=== PATIENT | male | born 1950 | race Caucasian/White ===

== ENCOUNTER → 2016-03-20 | Day surgery (SDC) | payer MEDICARE, OTHER ==
[~2016-03-20] MED LIST: ADVAIR 250-501 EAC1 IH; ALBUTEROL17 GM INH; ALDACTONE PO; BAYER ASPIRIN325 M1 PO; CALCIUM 600 MG1 EAC1 PO; CHOLESTEROL MED; COLACE PO; COMBIVENT U/D3 M1 INH; COREG6.25 MG PO; COUMADIN PO; COUMADIN5 MG PO; DILTIAZEM 24HR180 M1 PO; FLEXERIL PO; FLORINEF ACETA0.1 MG PO; FLORINEF0.1 M1 PO; FLORINEF0.1 MG PO; K-DUR20 ME1 PO; KAYEXALATE453.6 GM PO; LASIX20 MG PO; LEVAQUIN750 MG PO; LORTAB 10-5001 EACH PO; LORTAB 5/500 TA1 TA1 PO; LOVENOX40 MG/0.4 INJ; MATZIM LA240 MG PO; NORVASC PO; OMEPRAZOLE10 M1 PO; OXYGEN; PREDNISONE PO; PRINIVIL5 MG PO; SIMVASTATIN20 MG PO; SOD BICARBONATE PO; SYMBICORT INH; VENTOLIN5 MG/ML INH; VICODIN 5/500 T1 TAB PO; ZESTRIL5 MG PO; ZITHROMAX PO; ZOCOR PO
--- NOTE | ~2016-03-20 | OR ---
Unit #: [id number] #: [id number] Patient: WANDA BRANCH [id number] [address] [address] [id number] O MR#: [id number] NAME: WANDA BRANCH ROOM: Date of Procedure: 03/20/2016 Admission Date: 03/20/2016 Surgeon: Lance Collins M.D. : 1950 Attending Physician: Lance Collins M.D. Primary Care Physician: Jill Guo M.D. OPERATIVE REPORT PRIMARY CARE PHYSICIAN Dr. Jill Guo. PREOPERATIVE DIAGNOSES Iron deficiency anemia, anemia of chronic gastrointestinal blood loss. PROCEDURES PERFORMED Upper gastrointestinal endoscopy and biopsy as well as colonoscopy with polypectomy. POSTOPERATIVE DIAGNOSES For upper endoscopy: 1. The patient had moderate prepyloric antral erosive gastritis. A biopsy was obtained from the antrum for CLOtest. 2. Distal grade 2 erosive esophagitis. 3. Rest of the examination up to third part of duodenum was normal. Biopsies were obtained from the deep descending duodenal folds to look for any evidence of partial villous atrophy or celiac disease. For colonoscopy: 1. The patient had 2 sessile polyps, one each in the transverse colon and sigmoid colon. These were a centimeter and 5 mm each. Both were removed using snare cautery polypectomy. 2. Rest of the examination up to cecum and terminal ileum was normal. The quality of the prep was excellent. RECOMMENDATIONS 1. The patient will resume Coumadin starting today. 2. He is being started on pantoprazole 40 mg p.o. daily. 3. He will be followed up in the office in 12 weeks' time. SEDATION USED MAC. DESCRIPTION OF PROCEDURE Following detailed explanation of the potential risks and complications of an upper endoscopy and a colonoscopy, namely perforation, bleeding, and complication related to sedation, the patient was brought to GI lab and laid in the left lateral decubitus position. Lubricated tip of the Olympus video upper endoscope was passed through the bite block into the proximal esophagus under direct vision. The entire esophageal mucosa was examined. The patient was noted to have grade 2 distal erosive esophagitis. The scope was then advanced into the gastric cavity and the Unit #: [id number] #: [id number] Patient: WANDA BRANCH was insufflated. Mucosa of the fundus, body, and antrum was examined. Moderate diffuse prepyloric antral erosive gastritis was noted. Pylorus was intubated with visualization of the normal duodenal bulb and second and third part of the duodenum. Upon withdrawal and retroflexion, incisura, cardia, and greater curve was examined and a biopsy was obtained from the antrum for CLOtest. In addition, biopsies were also obtained from the deep descending duodenal folds to look for any evidence of partial villous atrophy or celiac disease. The scope was then withdrawn in the distal esophagus. Entire esophageal mucosa was examined all the way up to pharynx, no additional findings were noted. The examination table was then turned by 180 degrees and the patient was positioned for a colonoscopy. A digital rectal examination was performed, which was normal. Lubricated tip of the Olympus video colonoscope was inserted through the anus and advanced under direct vision. The scope was advanced past rectosigmoid into descending colon. No diverticula were seen in this area. The scope tip was then navigated all the way up to cecum with visualization of the ileocecal valve and the appendiceal orifice. Preparation was excellent with good visualization and photodocumentation was obtained. Last few inches of the terminal ileum were also visualized after intubation of the ileocecal valve and appeared normal. Successive segments of the colonic mucosa were examined upon withdrawal. The patient was noted to have 2 sessile polyps, the first was a transverse colon sessile polyp about a centimeter in size. This was removed using snare cautery polypectomy. A second sessile polyp was noted in the distal sigmoid colon. This was also removed using snare polypectomy. It was about 5 mm in size. Both the polyps were removed, retrieved, and sent for histology. Excellent hemostasis was achieved and photodocumentation was obtained. No additional polyps were noted. The patient did not have any diverticulosis nor any hemorrhoids. The scope was then withdrawn and the patient returned to the recovery area. He tolerated the procedure without any postprocedure complications. Dictated by.Jamaica Alejandro TD: 03/20/2016 08:40 JOB #: [id number] CC: [place] Guo OPERATIVE REPORT X Lance Collins MD OPERATIVE NOTE
== END | disposition home or self-care (01) ==
LOC: COPS 05:56
DX: K29.60 Other gastritis without bleeding (principal); K20.8 Other esophagitis; D12.3 Benign neoplasm of transverse colon; D12.5 Benign neoplasm of sigmoid colon; D50.0 Iron deficiency anemia secondary to blood loss (chronic); J44.9 Chronic obstructive pulmonary disease, unspecified; F17.200 Nicotine dependence, unspecified, uncomplicated; I25.10 Atherosclerotic heart disease of native coronary artery without angina pectoris; Z95.1 Presence of aortocoronary bypass graft; D64.9 Anemia, unspecified; I10 Essential (primary) hypertension; Z79.01 Long term (current) use of anticoagulants
CPT/HCPCS: 87077; 88305; J0290; J1580; J2250; J2370

== ENCOUNTER → 2016-04-09 | Outpatient (CLI) | payer MEDICARE, OTHER ==
[2016-04-09 09:50] LABS: INR 3.5; PROTHROMBIN TIME (PATIENT) 38.4 SECONDS (9.6-11.5)
== END | disposition home or self-care (01) ==
LOC: CLAB 08:58
PROVIDERS: Internal Medicine Cardiovascular Disease
DX: Z51.81 Encounter for therapeutic drug level monitoring (principal); Z95.2 Presence of prosthetic heart valve; Z79.01 Long term (current) use of anticoagulants
CPT/HCPCS: 36415; 85610

== ENCOUNTER → 2016-04-16 | Outpatient (CLI) | payer MEDICARE, OTHER ==
[2016-04-16 09:52] LABS: INR 2.8; PROTHROMBIN TIME (PATIENT) 30.6 SECONDS (9.6-11.5)
== END | disposition home or self-care (01) ==
LOC: CLAB 08:59
PROVIDERS: Internal Medicine Cardiovascular Disease
DX: Z51.81 Encounter for therapeutic drug level monitoring (principal); Z95.2 Presence of prosthetic heart valve; Z79.01 Long term (current) use of anticoagulants
CPT/HCPCS: 36415; 85610

== ENCOUNTER → 2016-04-18 | Outpatient (CLI) | payer MEDICARE, OTHER ==
[2016-04-18 10:28] LABS: INR 3.1; PROTHROMBIN TIME (PATIENT) 34.3 SECONDS (9.6-11.5)
== END | disposition home or self-care (01) ==
LOC: CLAB 09:43
PROVIDERS: Internal Medicine Cardiovascular Disease
DX: Z51.81 Encounter for therapeutic drug level monitoring (principal); Z79.01 Long term (current) use of anticoagulants; Z95.2 Presence of prosthetic heart valve
CPT/HCPCS: 36415; 85610

== ENCOUNTER → 2016-04-29 | Outpatient (CLI) | payer MEDICARE, OTHER ==
[2016-04-29 11:45] LABS: INR 5.5
== END | disposition home or self-care (01) ==
LOC: CLAB 10:40
PROVIDERS: Internal Medicine Cardiovascular Disease
DX: Z51.81 Encounter for therapeutic drug level monitoring (principal); Z95.2 Presence of prosthetic heart valve; Z79.01 Long term (current) use of anticoagulants
CPT/HCPCS: 36415; 85610

== ENCOUNTER → 2016-05-01 | Outpatient (CLI) | payer MEDICARE, OTHER ==
[2016-05-01 10:08] LABS: INR 1.6
[2016-05-01 10:09] LABS: PROTHROMBIN TIME (PATIENT) 17.4 SECONDS (9.6-11.5)
== END | disposition home or self-care (01) ==
LOC: CLAB 09:26
PROVIDERS: Internal Medicine Cardiovascular Disease
DX: Z51.81 Encounter for therapeutic drug level monitoring (principal); Z79.01 Long term (current) use of anticoagulants; Z95.2 Presence of prosthetic heart valve
CPT/HCPCS: 36415; 85610

== ENCOUNTER → 2016-05-03 | Outpatient (CLI) | payer MEDICARE, OTHER ==
[2016-05-03 07:22] LABS: INR 1.9; PROTHROMBIN TIME (PATIENT) 20.7 SECONDS (9.6-11.5)
== END | disposition home or self-care (01) ==
LOC: CLAB 06:35
PROVIDERS: Internal Medicine Cardiovascular Disease
DX: Z51.81 Encounter for therapeutic drug level monitoring (principal); Z95.2 Presence of prosthetic heart valve; Z79.01 Long term (current) use of anticoagulants
CPT/HCPCS: 36415; 85610

== ENCOUNTER → 2016-05-06 | Outpatient (CLI) | payer MEDICARE, OTHER ==
[2016-05-06 10:03] LABS: PROTHROMBIN TIME (PATIENT) 44.2 SECONDS (9.6-11.5)
== END | disposition home or self-care (01) ==
LOC: CLAB 09:25
PROVIDERS: Internal Medicine Cardiovascular Disease
DX: Z51.81 Encounter for therapeutic drug level monitoring (principal); Z95.2 Presence of prosthetic heart valve; Z79.01 Long term (current) use of anticoagulants
CPT/HCPCS: 36415; 85610

== ENCOUNTER → 2016-05-08 | Outpatient (CLI) | payer MEDICARE, OTHER ==
[2016-05-08 10:42] LABS: PROTHROMBIN TIME (PATIENT) 21.4 SECONDS (9.6-11.5)
== END | disposition home or self-care (01) ==
LOC: CLAB 09:26
PROVIDERS: Internal Medicine Cardiovascular Disease
DX: Z51.81 Encounter for therapeutic drug level monitoring (principal); Z95.2 Presence of prosthetic heart valve; Z79.01 Long term (current) use of anticoagulants
CPT/HCPCS: 36415; 85610

== ENCOUNTER → 2016-05-10 | Outpatient (CLI) | payer MEDICARE, OTHER ==
[2016-05-10 08:43] LABS: INR 2.4; PROTHROMBIN TIME (PATIENT) 26.4 SECONDS (9.6-11.5)
== END | disposition home or self-care (01) ==
LOC: CLAB 07:35
PROVIDERS: Internal Medicine Cardiovascular Disease
DX: Z51.81 Encounter for therapeutic drug level monitoring (principal); Z95.2 Presence of prosthetic heart valve; Z79.01 Long term (current) use of anticoagulants
CPT/HCPCS: 36415; 85610

== ENCOUNTER → 2016-05-13 | Outpatient (CLI) | payer MEDICARE, OTHER | END | disposition home or self-care (01) | LOC: CLAB 07:46 | DX: Z51.81 Encounter for therapeutic drug level monitoring (principal); Z95.2 Presence of prosthetic heart valve; Z79.01 Long term (current) use of anticoagulants | CPT/HCPCS: 36415; 85730 ==

== ENCOUNTER → 2016-05-20 | Outpatient (CLI) | payer MEDICARE, OTHER ==
[2016-05-20 10:09] LABS: INR 3.3; PROTHROMBIN TIME (PATIENT) 36.6 SECONDS (9.6-11.5)
== END | disposition home or self-care (01) ==
LOC: CLAB 09:28
PROVIDERS: Internal Medicine Cardiovascular Disease
DX: Z51.81 Encounter for therapeutic drug level monitoring (principal); Z95.2 Presence of prosthetic heart valve; Z79.01 Long term (current) use of anticoagulants
CPT/HCPCS: 36415; 85610

== ENCOUNTER → 2016-05-27 | Outpatient (CLI) | payer MEDICARE, OTHER ==
[2016-05-27 10:38] LABS: INR 4.1; PROTHROMBIN TIME (PATIENT) 44.9 SECONDS (9.6-11.5)
== END | disposition home or self-care (01) ==
LOC: CLAB 09:54
PROVIDERS: Internal Medicine Cardiovascular Disease
DX: Z51.81 Encounter for therapeutic drug level monitoring (principal); Z95.2 Presence of prosthetic heart valve; Z79.01 Long term (current) use of anticoagulants
CPT/HCPCS: 36415; 85610

== ENCOUNTER → 2016-06-10 | Outpatient (CLI) | payer MEDICARE, OTHER ==
[2016-06-10 10:13] LABS: INR 3.2; PROTHROMBIN TIME (PATIENT) 35.5 SECONDS (9.6-11.5)
== END | disposition home or self-care (01) ==
LOC: CLAB 09:32
PROVIDERS: Internal Medicine Cardiovascular Disease
DX: Z51.81 Encounter for therapeutic drug level monitoring (principal); Z95.2 Presence of prosthetic heart valve; Z79.01 Long term (current) use of anticoagulants
CPT/HCPCS: 36415; 85610

== ENCOUNTER → 2016-06-17 | Outpatient (CLI) | payer MEDICARE, OTHER ==
[2016-06-17 10:55] LABS: INR 5.1; PROTHROMBIN TIME (PATIENT) 56.9 SECONDS (9.6-11.5)
== END | disposition home or self-care (01) ==
LOC: CLAB 09:44
PROVIDERS: Internal Medicine Cardiovascular Disease
DX: Z51.81 Encounter for therapeutic drug level monitoring (principal); Z95.2 Presence of prosthetic heart valve; Z79.01 Long term (current) use of anticoagulants
CPT/HCPCS: 36415; 85610

== ENCOUNTER → 2016-06-19 | Outpatient (CLI) | payer MEDICARE, OTHER ==
[2016-06-19 10:52] LABS: INR 1.9
[2016-06-19 10:53] LABS: PROTHROMBIN TIME (PATIENT) 20.4 SECONDS (9.6-11.5)
== END | disposition home or self-care (01) ==
LOC: CLAB 09:47
PROVIDERS: Internal Medicine Cardiovascular Disease
DX: Z51.81 Encounter for therapeutic drug level monitoring (principal); Z95.2 Presence of prosthetic heart valve; Z79.01 Long term (current) use of anticoagulants
CPT/HCPCS: 36415; 85610

== ENCOUNTER → 2016-06-25 | Outpatient (CLI) | payer MEDICARE, OTHER ==
[2016-06-25 08:29] LABS: PROTHROMBIN TIME (PATIENT) 22.1 SECONDS (9.6-11.5)
== END | disposition home or self-care (01) ==
LOC: CLAB 07:42
PROVIDERS: Internal Medicine Cardiovascular Disease
DX: Z51.81 Encounter for therapeutic drug level monitoring (principal); Z95.2 Presence of prosthetic heart valve; Z79.01 Long term (current) use of anticoagulants
CPT/HCPCS: 36415; 85610

== ENCOUNTER → 2016-07-01 | Outpatient (CLI) | payer MEDICARE, OTHER ==
[2016-07-01 10:24] LABS: INR 1.8; PROTHROMBIN TIME (PATIENT) 19.3 SECONDS (9.6-11.5)
== END | disposition home or self-care (01) ==
LOC: CLAB 09:46
PROVIDERS: Internal Medicine Cardiovascular Disease
DX: Z51.81 Encounter for therapeutic drug level monitoring (principal); Z79.01 Long term (current) use of anticoagulants; Z95.2 Presence of prosthetic heart valve
CPT/HCPCS: 36415; 85610

== ENCOUNTER → 2016-07-10 | Outpatient (CLI) | payer MEDICARE, OTHER ==
[2016-07-10 09:38] LABS: PROTHROMBIN TIME (PATIENT) 21.4 SECONDS (9.6-11.5)
== END | disposition home or self-care (01) ==
LOC: CLAB 08:46
PROVIDERS: Internal Medicine Cardiovascular Disease
DX: Z51.81 Encounter for therapeutic drug level monitoring (principal); Z95.2 Presence of prosthetic heart valve; Z79.01 Long term (current) use of anticoagulants
CPT/HCPCS: 36415; 85610

== ENCOUNTER → 2016-07-17 | Outpatient (CLI) | payer MEDICARE, OTHER ==
[2016-07-17 10:22] LABS: INR 2.7; PROTHROMBIN TIME (PATIENT) 29.9 SECONDS (9.6-11.5)
== END | disposition home or self-care (01) ==
LOC: CLAB 09:12
PROVIDERS: Internal Medicine Cardiovascular Disease
DX: Z51.81 Encounter for therapeutic drug level monitoring (principal); Z95.2 Presence of prosthetic heart valve; Z79.01 Long term (current) use of anticoagulants
CPT/HCPCS: 36415; 85610

== ENCOUNTER → 2016-07-19 | Outpatient (CLI) | payer MEDICARE, OTHER ==
[2016-07-19 08:22] LABS: URINE APPEARANCE CLEAR; URINE BILIRUBIN NEG (NEG); URINE BLOOD NEG (NEG); URINE COLOR YELLOW; URINE GLUCOSE NEG (NEG); URINE KETONE NEG (NEG); URINE LEUKOCYTE ESTERASE NEG (NEG); URINE NITRATE NEG (NEG); URINE PROTEIN NEG (NEG); URINE SPECIFIC GRAVITY 1.009 (1.003-1.035)
[2016-07-19 08:24] LABS: BASOPHIL# 0.1 X10e3 (0-0.3); BASOPHIL% 1.2 % (0-2.5); DIFF IND YES; EOSINOPHIL# 0.2 X10e3 (0-0.7); EOSINOPHIL% 3.8 % (0.0-7.0); HEMATOCRIT 36.2 % (38.0-50.0); HEMOGLOBIN 11.2 gm/dL (13.0-16.0); MEAN CORPUSCULAR HGB CONC 30.9 g/dL (30-36); MEAN PLATELET VOLUME 8.8 FL (6.5-11.5); MONOCYTE# 0.5 X10e3 (0-1.0); PLATELET COUNT 171 X10e3 (140-420); RED BLOOD COUNT 4.47 X10e (3.90-5.60); RED CELL DISTRIBUTION WIDTH 27.4 % (11.0-15.5); WHITE BLOOD COUNT 4.8 X10e3 (4.0-10.5)
[2016-07-19 08:45] LABS: HYPOCHROMIA MOD; PLATELET ESTIMATE NORMAL (NORMAL)
[2016-07-19 08:46] LABS: MICROCYTOSIS MOD; OVALOCYTES PRESENT; POIKILOCYTOSIS MOD; SCHISTOCYTES PRESENT
[2016-07-19 08:47] LABS: TARGET CELLS SL
[2016-07-19 09:25] LABS: CREATININE,RANDOM URINE 48 mg/dL; TOTAL PROTEIN,RANDOM URINE <10 mg/dl (<10)
[2016-07-19 09:31] LABS: ALBUMIN SERUM 4.2 g/dL (3.5-5.0); BILIRUBIN,TOTAL 0.2 mg/dL (0.2-2.0); BUN/CREATININE RATIO 12.5; CALCIUM SERUM 8.9 mg/dL (8.4-10.2); CREATININE SERUM 0.8 mg/dL (0.6-1.4); GLOM FILT RATE Estimated 91.8 mL/min (>60); POTASSIUM 4.5 mmol/L (3.5-5.1); PROTEIN TOTAL SERUM 6.6 g/dL (6.0-8.3)
== END | disposition home or self-care (01) ==
LOC: CLAB 07:56
PROVIDERS: Internal Medicine Nephrology
DX: E87.5 Hyperkalemia (principal)
CPT/HCPCS: 36415; 80053; 81003; 82570; 84156; 85025

== ENCOUNTER → 2016-07-23 | Outpatient (CLI) | payer MEDICARE, OTHER ==
[2016-07-23 10:27] LABS: INR 4.4
[2016-07-23 10:31] LABS: PROTHROMBIN TIME (PATIENT) 48.4 SECONDS (9.6-11.5)
== END | disposition home or self-care (01) ==
LOC: CLAB 09:46
PROVIDERS: Internal Medicine Cardiovascular Disease
DX: Z51.81 Encounter for therapeutic drug level monitoring (principal); Z95.2 Presence of prosthetic heart valve; Z79.01 Long term (current) use of anticoagulants
CPT/HCPCS: 36415; 85610

== ENCOUNTER → 2016-07-30 | Outpatient (CLI) | payer MEDICARE, OTHER ==
[2016-07-30 10:49] LABS: INR 2.2; PROTHROMBIN TIME (PATIENT) 24.3 SECONDS (10.0-11.7)
== END | disposition home or self-care (01) ==
LOC: CLAB 10:04
PROVIDERS: Internal Medicine Cardiovascular Disease
DX: Z51.81 Encounter for therapeutic drug level monitoring (principal); Z95.2 Presence of prosthetic heart valve; Z79.01 Long term (current) use of anticoagulants
CPT/HCPCS: 36415; 85610

== ENCOUNTER → 2016-08-06 | Outpatient (CLI) | payer MEDICARE, OTHER ==
[2016-08-06 12:32] LABS: INR 2.6; PROTHROMBIN TIME (PATIENT) 27.9 SECONDS (10.0-11.7)
== END | disposition home or self-care (01) ==
LOC: CLAB 11:34
PROVIDERS: Internal Medicine Cardiovascular Disease
DX: Z51.81 Encounter for therapeutic drug level monitoring (principal); Z95.2 Presence of prosthetic heart valve; Z79.01 Long term (current) use of anticoagulants
CPT/HCPCS: 36415; 85610

== ENCOUNTER → 2016-08-15 | Outpatient (CLI) | payer MEDICARE, OTHER ==
[2016-08-15 10:53] LABS: INR 2.8; PROTHROMBIN TIME (PATIENT) 30.8 SECONDS (10.0-11.7)
== END | disposition home or self-care (01) ==
LOC: CLAB 10:11
PROVIDERS: Internal Medicine Cardiovascular Disease
DX: Z51.81 Encounter for therapeutic drug level monitoring (principal); Z79.01 Long term (current) use of anticoagulants; Z95.2 Presence of prosthetic heart valve
CPT/HCPCS: 36415; 85610

== ENCOUNTER → 2016-08-22 | Outpatient (CLI) | payer MEDICARE, OTHER ==
[2016-08-22 11:04] LABS: INR 2.2; PROTHROMBIN TIME (PATIENT) 24.1 SECONDS (10.0-11.7)
== END | disposition home or self-care (01) ==
LOC: CLAB 10:00
PROVIDERS: Internal Medicine Cardiovascular Disease
DX: Z51.81 Encounter for therapeutic drug level monitoring (principal); Z95.2 Presence of prosthetic heart valve; Z79.01 Long term (current) use of anticoagulants
CPT/HCPCS: 36415; 85610

== ENCOUNTER → 2016-08-29 | Outpatient (CLI) | payer MEDICARE, OTHER ==
[2016-08-29 10:02] LABS: INR 2.3; PROTHROMBIN TIME (PATIENT) 25.3 SECONDS (10.0-11.7)
== END | disposition home or self-care (01) ==
LOC: CLAB 09:07
PROVIDERS: Internal Medicine Cardiovascular Disease
DX: Z51.81 Encounter for therapeutic drug level monitoring (principal); Z95.2 Presence of prosthetic heart valve; Z79.01 Long term (current) use of anticoagulants
CPT/HCPCS: 36415; 85610

== ENCOUNTER → 2016-09-05 | Outpatient (CLI) | payer MEDICARE, OTHER ==
[2016-09-05 09:41] LABS: INR 3.1; PROTHROMBIN TIME (PATIENT) 33.5 SECONDS (10.0-11.7)
== END | disposition home or self-care (01) ==
LOC: CLAB 08:53
PROVIDERS: Internal Medicine Cardiovascular Disease
DX: Z51.81 Encounter for therapeutic drug level monitoring (principal); Z95.2 Presence of prosthetic heart valve; Z79.01 Long term (current) use of anticoagulants
CPT/HCPCS: 36415; 85610

== ENCOUNTER → 2016-09-11 | Outpatient (CLI) | payer MEDICARE, OTHER ==
[2016-09-11 11:32] LABS: INR 3.7; PROTHROMBIN TIME (PATIENT) 40.1 SECONDS (10.0-11.7)
== END | disposition home or self-care (01) ==
LOC: CLAB 11:07
PROVIDERS: Internal Medicine Cardiovascular Disease
DX: Z51.81 Encounter for therapeutic drug level monitoring (principal); Z95.2 Presence of prosthetic heart valve; Z79.01 Long term (current) use of anticoagulants
CPT/HCPCS: 36415; 85610

== ENCOUNTER → 2016-09-20 | Outpatient (CLI) | payer MEDICARE, OTHER ==
[2016-09-20 10:15] LABS: INR 3.6; PROTHROMBIN TIME (PATIENT) 38.9 SECONDS (10.0-11.7)
== END | disposition home or self-care (01) ==
LOC: CLAB 09:39
PROVIDERS: Internal Medicine Cardiovascular Disease
DX: Z51.81 Encounter for therapeutic drug level monitoring (principal); Z95.2 Presence of prosthetic heart valve; Z79.01 Long term (current) use of anticoagulants
CPT/HCPCS: 36415; 85610

== ENCOUNTER → 2016-09-26 | Outpatient (CLI) | payer MEDICARE, OTHER ==
[2016-09-26 10:03] LABS: INR 3.1; PROTHROMBIN TIME (PATIENT) 33.4 SECONDS (10.0-11.7)
== END | disposition home or self-care (01) ==
LOC: CLAB 09:17
PROVIDERS: Internal Medicine Cardiovascular Disease
DX: Z51.81 Encounter for therapeutic drug level monitoring (principal); Z95.2 Presence of prosthetic heart valve
CPT/HCPCS: 36415; 85610

== ENCOUNTER → 2016-10-03 | Outpatient (CLI) | payer MEDICARE, OTHER ==
[2016-10-03 10:23] LABS: INR 2.4; PROTHROMBIN TIME (PATIENT) 25.7 SECONDS (10.0-11.7)
== END | disposition home or self-care (01) ==
LOC: CLAB 09:40
PROVIDERS: Internal Medicine Cardiovascular Disease
DX: Z51.81 Encounter for therapeutic drug level monitoring (principal); Z79.01 Long term (current) use of anticoagulants; Z95.2 Presence of prosthetic heart valve
CPT/HCPCS: 36415; 85610

== ENCOUNTER → 2016-10-10 | Outpatient (CLI) | payer MEDICARE, OTHER ==
[2016-10-10 10:47] LABS: INR 2.4; PROTHROMBIN TIME (PATIENT) 26.3 SECONDS (10.0-11.7)
== END | disposition home or self-care (01) ==
LOC: CLAB 10:01
PROVIDERS: Internal Medicine Cardiovascular Disease
DX: Z51.81 Encounter for therapeutic drug level monitoring (principal); Z95.2 Presence of prosthetic heart valve; Z79.01 Long term (current) use of anticoagulants
CPT/HCPCS: 36415; 85610

== ENCOUNTER → 2016-10-17 | Outpatient (CLI) | payer MEDICARE, OTHER ==
[2016-10-17 10:35] LABS: INR 2.7; PROTHROMBIN TIME (PATIENT) 29.4 SECONDS (10.0-11.7)
== END | disposition home or self-care (01) ==
LOC: CLAB 09:52
PROVIDERS: Internal Medicine Cardiovascular Disease
DX: Z51.81 Encounter for therapeutic drug level monitoring (principal); Z95.2 Presence of prosthetic heart valve; Z79.01 Long term (current) use of anticoagulants
CPT/HCPCS: 36415; 85610

== ENCOUNTER → 2016-10-24 | Outpatient (CLI) | payer MEDICARE, OTHER ==
[2016-10-24 10:30] LABS: INR 2.3
== END | disposition home or self-care (01) ==
LOC: CLAB 09:48
PROVIDERS: Internal Medicine Cardiovascular Disease
DX: Z51.81 Encounter for therapeutic drug level monitoring (principal); Z95.2 Presence of prosthetic heart valve; Z79.01 Long term (current) use of anticoagulants
CPT/HCPCS: 36415; 85610

== ENCOUNTER → 2016-10-31 | Outpatient (CLI) | payer MEDICARE, OTHER ==
[2016-10-31 11:03] LABS: INR 3.5
[2016-10-31 11:08] LABS: PROTHROMBIN TIME (PATIENT) 38.2 SECONDS (10.0-11.7)
== END | disposition home or self-care (01) ==
LOC: CLAB 10:22
PROVIDERS: Internal Medicine Cardiovascular Disease
DX: Z51.81 Encounter for therapeutic drug level monitoring (principal); Z95.2 Presence of prosthetic heart valve; Z79.01 Long term (current) use of anticoagulants
CPT/HCPCS: 36415; 85610